=== PATIENT | female | born 2000 | race Two or more races ===

== ENCOUNTER 2019-01-24 11:40 | Inpatient (IN) | payer MEDICAID, OTHER ==
[~2019-01-24] VITALS: Ht 160 cm; Wt 76.2 kg
[2019-01-24] MEDS ORDERED: LACT. RINGERS/OXYTOCIN 20UNITS 1,000 ML IV SCH (13:05)
[2019-01-24] MEDS ORDERED: PENICILLIN G POT 5MIL/D5 50ML 50 ML IV ONE (13:15)
[2019-01-24] MEDS ORDERED: PHISODERM TOP SOLN 240ML BTL TOP PRN (13:15)
[2019-01-24] MEDS ORDERED: WITCH HAZEL-GLYCERIN PAD TOP PRN (13:15)
[2019-01-24] MEDS ORDERED: DERMOPLAST 60ML BOTTLE TOP PRN (13:15)
[2019-01-24] MEDS ORDERED: LIDOCAINE 2%HCL (LOCAL ANESTH.) INJ 20ML MDV ID ONE (13:15)
[2019-01-24] MEDS: LACTATED RINGER'S 1,000 ML IV SCH ×2 (13:38→18:29)
[2019-01-24 14:04] LABS: Basophils # (auto) 0 uL; Basophils % (auto) 0.2 % (0.0-2.0); Eosinophils # (auto) 0 uL; Eosinophils % (auto) 0.1 % (0.0-7.0); Hematocrit 37.3 % (36.0-46.0); Hemoglobin 12.5 g/dL (12.2-16.2); Lymphocytes # (auto) 1.3 uL; Lymphocytes % (auto) 14.2 % (10.0-50.0); Mean Corpuscular Hemoglobin 28.8 pg (28.0-32.0); Mean Corpuscular Hgb Conc. 33.5 g/dL (32.0-36.0); Mean Corpuscular Volume 85.9 fL (80.0-100.0); Monocytes # (auto) 0.6 uL; Neutrophils # (auto) 7.5 uL; Neutrophils % (auto) 79.5 % (37.0-80.0); Platelet Count (auto) 239 10^3/uL (140-450); Red Blood Cells 4.34 10^6/uL (4.0-5.20); Red Cell Distribution Width 14.2 % (11.8-14.3); White Blood Cell 9.4 10^3/uL (4.4-10.8)
[2019-01-24 14:09] LABS: Alcohol, Urine < 3.0 mg/dL (0-5); Amphetamine Screen, Urine NEGATIVE (NEGATIVE); Barbiturate Scree,Urine NEGATIVE (NEGATIVE); Benzodiazephine Screen, Urine NEGATIVE (NEGATIVE); Cannabinoid Screen, Urine NEGATIVE (NEGATIVE); Cocaine Screen, Urine NEGATIVE (NEGATIVE); Opiate Scree,Urine NEGATIVE (NEGATIVE); Phencyclidine Screen, Urine NEGATIVE (NEGATIVE)
[2019-01-24 14:10] LABS: Calcium 8.8 mg/dL (8.5-10.1)
[2019-01-24 14:13] LABS: BUN/Creatinine Ratio 15.3; Bilirubin, Total 0.8 mg/dL (0.2-1.0); Total Protein 6.9 g/dL (6.4-8.2)
[2019-01-24 14:24] LABS: Urine Bacteria FEW /hpf (None Seen); Urine Blood TRACE /uL (Negative); Urine Mucus FEW (None Seen); Urine Specific Gravity 1.018 (1.001-1.035); Urine WBC 20 /hpf (0 - 5)
[2019-01-24 14:25] LABS: INR < 0.93 (0.9-1.15); Partial Thromboplastin Time 24.5 sec (23.64-32.05)
[2019-01-24] MEDS ORDERED: ceFAZolin 1GM/50ML 50 ML IV ONE (14:36)
[2019-01-24] MEDS: ceFAZolin 1GM/50ML 50 ML IV SCH (14:39)
[2019-01-24] MEDS ORDERED: PENICILLIN G POTASSIUM 2,500,000 UNITS in D5W 5% 50 ML IV SCH (17:15)
[2019-01-24] MEDS ORDERED: PREN-96 PO (18:48)
[2019-01-24] MEDS ORDERED: hydrOXYzine HCL 25 MG/ML VL IM ONE (20:22)
[2019-01-24] MEDS ORDERED: BUTORPHANOL TARTRATE 2 MG/1 ML VIAL IM ONE (20:45)
--- NOTE | 2019-01-24 21:14 | NUR ---
ancef ancef scheduled for 01/24/19 at 2200 shows on emar admin at 1439. 1400 dose not noted. This RN scanned stk med pulled at 1437 to scan at 2200
[2019-01-24] MEDS ORDERED: CALCIUM CARB 500 MG CHEW TAB PO ONE (22:45)
[2019-01-25] MEDS ORDERED: ONDANSETRON HCL 4 MG/2 ML VIAL IV PRN
[2019-01-25] MEDS: NALBUPHINE HCL 10 MG/1ml INJECTION IV PRN ×2 (01:15→06:53)
[2019-01-25] MEDS: LACTATED RINGER'S 1,000 ML IV SCH ×3 (02:39→19:56)
[2019-01-25 04:06] LABS: RPR Non Reactive (Non Reactive)
[2019-01-25] MEDS: ceFAZolin 1GM/50ML 50 ML IV SCH ×2 (05:31→14:00)
[2019-01-25] MEDS ORDERED: LACT. RINGERS/OXYTOCIN 20UNITS 1,000 ML IV SCH (06:01)
[2019-01-25] MEDS ORDERED: PROMETHAZINE HCL 25 MG/ML 1ML IV ONE (06:03)
[2019-01-25] MEDS ORDERED: LACTATED RINGER'S 500 ML IV ONE (09:56)
[2019-01-25] MEDS ORDERED: ePHEDrine SULFATE 50 MG/ML AMP IV ONE (10:00)
[2019-01-25] MEDS ORDERED: NALOXONE HCL 0.4 MG/ML VIAL IV ONE (10:00)
[2019-01-25] MEDS ORDERED: fentaNYL W ROPIVACAINE 150 ML EPI SCH (10:00)
[2019-01-25] MEDS ORDERED: LIDOCAINE HCL 2 %PF INJ 10ML AMP IJ ONE (10:00)
[2019-01-25] MEDS ORDERED: fentaNYL CITRATE 100 MCG/2 ML VL IV ONE (10:00)
[2019-01-25] MEDS ORDERED: LIDOCAINE 2%HCL (LOCAL ANESTH.) INJ 20ML MDV IJ ONE (10:00)
--- NOTE | 2019-01-25 14:00 | NUR ---
Ambulation: Patient OOB with standby assistance by RN. Patient ambulated to bathroom with steady gait. Patient able to void without difficulty. [facility]icare teaching provided with returned demonstration by patient. Clean gown provided and bed linen changed. Patient ambulated back to bed with steady gait and no distress noted.
--- NOTE | 2019-01-25 18:01 | NUR ---
dr. tompkins was called and informed him that the patient temperature is 99.3 and feeling hot,received order to give the patient 650 mg of tylenol po every 4 hrs for fever.
[2019-01-25] MEDS ORDERED: ACETAMINOPHEN 325 MG TAB PO PRN (18:15)
--- NOTE | 2019-01-25 18:40 | NUR ---
TEMPERATURE WAS RECHECKED -99.0
[2019-01-25 19:00] VITALS: BP 113/64
--- NOTE | 2019-01-25 19:50 | NUR ---
PATIENT IS STILL LOOKING FLUSHED AND FEELING HOT TEMPERATURE [id number]. ORDONEZ WAS CALLED AND REPORT GIVEN RECEIVED ORDER TO DO BLOOD CULTURE X2 AND CHUCK THE W[employer]OURCES TECHNICAL OFFICER ORDERED CBC.
[2019-01-25 21:19] LABS: Basophils # (auto) 0 uL; Basophils % (auto) 0.2 % (0.0-2.0); Eosinophils # (auto) 0 uL; Hematocrit 33.6 % (36.0-46.0); Hemoglobin 11.1 g/dL (12.2-16.2); Lymphocytes # (auto) 1.7 uL; Lymphocytes % (auto) 11.7 % (10.0-50.0); Mean Corpuscular Hemoglobin 28.6 pg (28.0-32.0); Mean Corpuscular Volume 86.8 fL (80.0-100.0); Monocytes # (auto) 1.1 uL; Monocytes % (auto) 7.5 % (0.0-12.0); Neutrophils # (auto) 11.9 uL; Neutrophils % (auto) 80.6 % (37.0-80.0); Platelet Count (auto) 251 10^3/uL (140-450); Red Blood Cells 3.87 10^6/uL (4.0-5.20); Red Cell Distribution Width 14.1 % (11.8-14.3); White Blood Cell 14.8 10^3/uL (4.4-10.8)
--- NOTE | 2019-01-25 21:45 | NUR ---
report given to avila da silva rn patient in stable condition.
[2019-01-25] MEDS: IBUPROFEN 600 MG TAB PO PRN (22:25)
[2019-01-25 23:00] VITALS: BP 116/60
--- NOTE | 2019-01-25 23:30 | NUR ---
Call placed to TAHMINA Munoz, reported body temp of 98.0 orally and WBC of 14.8, orders received to saline lock and discontinue fluids.
[2019-01-26 03:00] VITALS: BP 112/66
--- NOTE | 2019-01-26 06:30 | NUR ---
REPORT: REPORT RECEIVED FROM NURSE PRACTITIONER ADULT RN TO RESUME CARE OF PT.
[2019-01-26 07:00] VITALS: BP 103/64
--- NOTE | 2019-01-26 08:15 | NUR ---
MD CONTACT: SPOKE TO DR. GOLDBERG AND UPDATED ON PT FULL STATUS. AWARE THAT PATIENT WAS REQUESTING TO GO HOME TODAY, THAT SHE DELIVERED AT 1050 ON 01/25/19 AND THAT PATIENT HAS NO LONGER BEEN FEBRILE AND NO TACHYCARDIA NOTED AT TIME. MD WOULD LIKE PT TO BE STILL ADMITTED AND TO NOT DISCHARGE HOME YET MD WAITING BLOOD CULTURE RESULTS. PATIENT MADE AWARE.
--- NOTE | 2019-01-26 09:25 | NUR ---
FEEDING: PT EDUCATED IN DETAIL ABOUT IMPORTANCE FOR BREAST FEEDING, SHOWED PROPER POSITIONING, PATIENT VERBALIZED COMPLETE UNDERSTANDING OF BENEFITS, IMPORTANCE AND EDUCATION FOR AND ALL QUESTIONS AND CONCERNS ADDRESSED. DESPITE FULL EDUCATION GIVEN ON , PATIENT STILL REQUESTING BOTTLE FEEDING. PROVIDED BOTTLE FOR BABY PER REQUEST.
[2019-01-26 11:30] VITALS: BP 108/74
[2019-01-26] MEDS: IBUPROFEN 600 MG TAB PO PRN ×2 (12:18→19:59)
[2019-01-26 15:00] VITALS: BP 118/78
--- NOTE | 2019-01-26 16:18 | NUR ---
Teaching: Discussed benefits of and risks associated with not . Discussed different positions, proper latch, feeding cues, and baby-led . All questions and concerns addressed at this time. infant latched on, bonding well. Patient verbalized understanding of information.
--- NOTE | 2019-01-26 18:20 | NUR ---
REPORT: REPORT GIVEN TO SALES SUPPORT REP RN TO RESUME CARE OF PT.
[2019-01-26 19:30] VITALS: BP 129/87
[2019-01-26 23:15] VITALS: BP 126/79
[2019-01-27 03:00] VITALS: BP 117/84
[2019-01-27 06:43] VITALS: BP 131/77
--- NOTE | 2019-01-27 09:25 | NUR ---
RN AT THE BEDSIDE TO DISCUSS INFANT ELEVATED BILI AND THE NEED FOR PHOTOTHERAPY. MOTHER INFORMED THAT SHE WOULD BE DISCHARGED TODAY BUT MAY STILL COME AND VISIT THE INFANT WHEN DESIRED.
--- NOTE | 2019-01-27 09:32 | NUR ---
INFANT BROUGHT VIA O/C TO NURSERY FOR PHOTOTHERAPY. PARENTS EDUCATED ON THE PROCESS. EYE DANIELSON PLACED OVER INFANTS EYES, PLACED IN PRONE POSITION INTO WARM ISOLETTE, NO S/S OF DISTRESS NOTED. CONDITION STABLE.
--- NOTE | 2019-01-27 10:20 | NUR ---
Discharge: Discharge instructions given as ordered. Pt encouraged to follow up with TAKE OUT WAITER/WAITRESS as instructed. All questions and concerns addressed. Patient verbalized understanding. Medication reconciliation completed and copy given to patient. Patient encouraged to prepare to depart unit. Discharge: Patient taken to vehicle via Ambulation with all personal belongings. No distress noted at time of departure, no adverse changes in status since initial assessment.
--- NOTE | 2019-01-27 10:20 | NUR ---
Patients baby is staying in nursery and under double photo therapy lights for jaundice asper ordered by Dr. Beauchamp. Patient states she will go home and return in afternoon.
== END 2019-01-27 10:20 | disposition home or self-care (01) | DRG 560 ==
LOC: OBSVTOIN 11:40 → LDRP 11:40 → EDBD 11:40 → LDRP 01-25 14:51
PROVIDERS: ADMIT Obstetrics & Gynecology; ATTEND Obstetrics & Gynecology
PROC: 10E0XZZ Delivery of Products of Conception, External Approach (ICD-10-PCS; principal; 2019-01-25)
DX: O42.92 Full-term premature rupture of membranes, unspecified as to length of time between rupture and onset of labor (principal); Z37.0 Single live birth; Z3A.39 39 weeks gestation of pregnancy
CPT/HCPCS: 36415; 59025; 59409; 80053; 80307; 81001; 81002; 84112; 85025; 85610; 85730; 86592; 86850; 86900; 86901; 87040; 96361; 96365; 96366; 96372; 96374; G0378; J0690; J2405; J2590; J3010; J7060

== ENCOUNTER 2022-06-22 19:55 | Emergency (ER) | payer MEDICAID ==
[~2022-06-22 19:55] MED LIST: PREN-96 PO
[2022-06-22] MEDS ORDERED: cloNIDine HCL 0.1 MG TAB PO ONE (20:00)
== END 2022-06-22 20:19 | disposition left against medical advice (07) ==
LOC: ER 19:58
DX: R51.9 Headache, unspecified (principal); M54.2 Cervicalgia; Z53.21 Procedure and treatment not carried out due to patient leaving prior to being seen by health care provider; V89.2XXA Person injured in unspecified motor-vehicle accident, traffic, initial encounter; Y93.89 Activity, other specified; Y92.89 Other specified places as the place of occurrence of the external cause; Y99.8 Other external cause status